=== PATIENT | male | born 1950 | race Caucasian/White ===

== ENCOUNTER 2020-10-03 17:29 | Inpatient (IN) ==
[2020-10-03 18:31] LABS: ABS Basophils 0.1 10^3/ul (0-0.2); ABS Eosinophils 0.1 10^3/ul (0-0.6); ABS Lymphocytes 1.8 10^3/ul (1.0-4.8); ABS Monocytes 0.7 10^3/ul (0-0.8); ABS Neutrophils 6.8 10^3/ul (1.5-7.7); Eosinophil % 0.6 %; Hematocrit 45 % (42-52); Hemoglobin 15.7 g/dL (14.0-18.0); Lymphocyte % 18.7 %; Mean Corpuscular HGB Conc 35 g/dL (31-36); Mean Corpuscular Hemoglobin 34 pg (27-31); Mean Corpuscular Volume 96 fL (80-94); Mean Platelet Volume 7.1 fL (7.4-10.4); Platelet Count 368 10^3/uL (150-450); Red Blood Count 4.67 10^6 /uL (4.18-5.48); Red Cell Distribution Width 13 % (10-15); White Blood Count 9.4 10^3/uL (3.5-10.8)
[2020-10-03 18:34] LABS: Urine Appearance Clear; Urine Bilirubin Negative (Negative); Urine Blood Negative (Negative); Urine Color Yellow; Urine Glucose Negative (Negative); Urine Ketones Negative (Negative); Urine Nitrite Negative (Negative); Urine Protein Negative (Negative); Urine Specific Gravity 1.008 (1.010-1.030); Urine Urobilinogen Negative (Negative)
[2020-10-03 18:47] LABS: ALT 30 U/L (7-52); AST 68 U/L (13-39); Albumin 4.4 g/dL (3.2-5.2); Albumin/Globulin Ratio 1.4 (1-3); Alkaline Phosphatase 96 U/L (34-104); Anion Gap 15 mmol/L (2-11); BUN/Creatinine Ratio 15.3 (8-20); Blood Urea Nitrogen 15 mg/dL (6-24); CO2 Carbon Dioxide 22 mmol/L (22-32); Calcium 9.5 mg/dL (8.6-10.3); Chloride 99 mmol/L (101-111); EGFR African American 91.8 (>60); EGFR Non-African American 75.8 (>60); Globulin 3.2 g/dL (2-4); Glucose 159 mg/dL (70-100); Magnesium 2.3 mg/dL (1.9-2.7); Potassium 3.8 mmol/L (3.5-5.0); Sodium 136 mmol/L (135-145); Total Protein 7.6 g/dL (6.4-8.9)
[2020-10-03 18:48] LABS: Urine Benzodiazepine Screen None Detected (None Detect); Urine Cannabinoids Screen None Detected (None Detect); Urine Opiates Screen None Detected (None Detect)
[2020-10-03 19:06] LABS: Acetaminophen < 15 mcg/mL; Alcohol, S 225 mg/dL (<10); Salicylate < 2.50 mg/dL (<30)
[2020-10-04] MEDS ORDERED: Al Hydrox/Mg Hydrox/Simet LIQ 30 ML UDC PO PRN (04:38)
[2020-10-04] MEDS ORDERED: Lorazepam PYXIS KEY PRN (04:40)
[2020-10-04] MEDS ORDERED: LORazepam IM 0-6 mg for WAM protocol IM SCH (05:00)
[2020-10-04] MEDS ORDERED: LORazepam PO 0-6 for WAM protocol PO SCH (05:00)
[2020-10-04] MEDS: Vitamin THERAPEUTIC TAB PO SCH (09:33)
[2020-10-05] MEDS: Vitamin THERAPEUTIC TAB PO SCH ×2 (09:37→09:40)
[2020-10-06 08:02] LABS: HDL Cholesterol 62.4 mg/dL
[2020-10-06] MEDS: Vitamin THERAPEUTIC TAB PO SCH (10:16)
[2020-10-06 10:59] VITALS: BP 144/64
== END 2020-10-06 18:06 | disposition home or self-care (01) | DRG 885 ==
LOC: ED 17:29 → BSU 10-04 02:11
PROVIDERS: ADMIT Psychiatry & Neurology Psychiatry; ATTEND Psychiatry & Neurology Psychiatry